=== PATIENT | female | born 1935 | race Caucasian/White ===

== ENCOUNTER → 2016-07-10 | Day surgery (SDC) | payer MEDICARE, BC ==
[~2016-07-10] MED LIST: ACETAMINOPHEN500 M2 PO; AGGRENOX PO; AGGRENOX1 CAP PO; ALPRAZOLAM0.5 MG PO; ALTOPREV40 MG PO; ASPIRIN; ASPIRIN81 M1 PO; ASPIRIN81 M2 PO; AUGMENTIN875 MG PO; BAYER CHEWABLE81 MG PO; CALCIUM 500 +1 EAC2 PO; CELEBREX; CENTRUM SILVER; CLOPIDOGREL75 MG PO; GABAPENTIN300 M2 PO; HYDROCODON-ACE1 EAC5 PO; HYDROCODON-ACE1 EAC7 PO; K-DUR20 ME1 PO; LIPITOR80 MG PO; LISINOPRIL-HCTZ1 T15 PO; LISINOPRIL10 MG PO; METOPROLOL TART25 MG PO; MEVACOR; MEVACOR PO; MEVACOR40 MG PO; NEURONTIN300 MG; NEURONTIN300 MG PO; NITROGLYCERIN0.4 MG SL; NORVASC2.5 MG PO; PATIENT'S PHARMACY; PLAVIX PO; VICODIN 5/500 T1 TAB PO; XANAX0.5 M1 PO; XANAX0.5 MG PO; ZESTORETIC 20-1 EAC2 PO; ZESTORETIC 20-1 EACH PO; ZESTORETIC 20/21 TAB PO
--- NOTE | ~2016-07-10 | OR ---
Unit #: [id number] #: [id number] Patient: SANDHYA CRANE [id number] [address] [place], [place] [address] [id number] MR#: [id number] NAME: SANDHYA CRANE ROOM: Date of Procedure: 07/10/2016 Admission Date: 07/10/2016 Surgeon: Jam Gusman M.D. : 1935 Attending Physician: Jam Gusman M.D. Primary Care Physician: Pooja Hoffman M.D. OPERATIVE REPORT PREOPERATIVE DIAGNOSES 1. Back pain. 2. Lumbar facet disease. POSTOPERATIVE DIAGNOSES 1. Back pain. 2. Lumbar facet disease. PROCEDURE PERFORMED Lumbar facet injection x2 levels with intravenous sedation and fluoroscopic guidance for needle localization. INDICATIONS FOR PROCEDURE The patient is a 81-year-old female, who has had a return of back pain due to significant L4-L5 and L5-S1 facet disease. She was treated last in 4 months ago with facet injections and did extremely well until just recently. Due to nonsurgical pathology, medications alone are sufficient. Plan, based on history, pathology, and symptomatology, is to repeat facet injections today. DESCRIPTION OF PROCEDURE The patient was placed in a seated position. Standard monitors were applied. 2 mg of Versed were given for sedation and anxiolysis, which were adequate. Vital signs remained stable. Sterile prep and drape then of the lumbar area was performed. The skin overlying the left-sided L4-L5 and L5-S1 facet joints localized with 1% lidocaine. At both of these levels, 22-gauge Quincke point spinal needles were advanced with fluoroscopic guidance to bring the needle tip to within the edge of the respective L4-L5 and L5-S1 facets. After confirming this with fluoroscopy, a dose of 1 mL of a mixture of 80 mg of Depo-Medrol and 3 mL of 0.25% bupivacaine were deposited in each joint, 0.5 mL in the joint and 0.5 mL just outside the joint. The needles were flushed and removed. The skin then to the right of midline was localized with 1% lidocaine overlying the right L4-L5 and L5-S1 facet joints. Then using fluoroscopic guidance, 22-gauge Quincke point needles were advanced down toward these joints. The needle was advanced into the edge of the joints using fluoroscopy to confirm proper positioning. After proper confirmation, a dose of 1 mL of a mixture of 80 mg of Depo-Medrol and 3 mL of 0.25% bupivacaine were deposited. The patient tolerated the procedure well. The needles were flushed and removed. Unit #: [id number] #: [id number] Patient: SANDHYA CRANE Dictated by... Polly Arevalo/jovani TD: 07/11/2016 02:23 JOB #: [id number] OPERATIVE REPORT Page 1 of 1 X Jam Gusman MD X PROCEDURE OPERATIVE NOTE
== END | disposition home or self-care (01) ==
LOC: CCSC 09:09
DX: M47.26 Other spondylosis with radiculopathy, lumbar region (principal); M51.86 Other intervertebral disc disorders, lumbar region; I10 Essential (primary) hypertension; E78.00 Pure hypercholesterolemia, unspecified; F41.9 Anxiety disorder, unspecified; Z86.73 Personal history of transient ischemic attack (TIA), and cerebral infarction without residual deficits
CPT/HCPCS: J1040; J2250

== ENCOUNTER 2016-12-03 11:56 | Observation (INO) | payer MEDICARE, BC ==
[~2016-12-03] VITALS: Ht 162.6 cm; Wt 68.5 kg
--- NOTE | ~2016-12-03 | HP ---
Unit #: [id number] #: [id number] Patient: SANDHYA CRANE [id number] [address] [place], [place] [address] [id number] MR#: [id number] NAME: SANDHYA CRANE ROOM: 46275 Age: 81 Sex: F Admission Date: 12/03/2016 : 1935 Attending Physician: Ed Manley M.D. Primary Care Physician: Pooja Hoffman M.D. HISTORY AND PHYSICAL HISTORY OF PRESENT ILLNESS This is a 81-year-old white female seen by Dr. Manley years ago and then Dr. Browning in 2013 for near syncope. The patient does not actively follow with cardiology. She does have a history of hypertension, hyperlipidemia and cerebrovascular accident in 2010. She was told that she had carotid disease but she has not had any recent imaging completed. She continues to actively smoke a half pack of cigarettes per day. Risk factors for ischemic heart disease include hypertension, hyperlipidemia, tobacco abuse and family history of heart disease. She presented to the emergency department with complaints of chest pain. The patient was at home and sitting down when she developed a burning sensation in her midsternal chest. There was no radiation to the neck, jaw, shoulders or arms. There are no associating symptoms of nausea, vomiting or diaphoresis. She denies previous episodes of chest pain with exertion or at night. There are no reports of dizziness, palpitations or syncope. She did have an episode a couple years ago where she fell and EMS was dispatched. She was told that her blood pressure was abnormal. In the emergency department her temperature was 98.5, pulse 89, respirations 18, blood pressure 133/68 and O2 saturation 97% on room air. She was given nitroglycerin per EMS which resolved her pain. She was also given a full dose of aspirin and then started on nitroglycerin paste. Initial cardiac enzymes were negative. EKG revealed sinus rhythm with frequent PVCs and a left axis deviation. Patient was advised for hospitalization and further monitoring. PAST MEDICAL HISTORY 1. Lexiscan Cardiolite stress test February 27, 2012 revealed no ischemia. Ejection fraction 64%. 2. Two-D echocardiogram 01/06/2014 revealed an ejection fraction of 50% to 55% with impaired LV relaxation. Left atrium borderline dilated. Trace mitral regurgitation. Mild tricuspid regurgitation. RVSP 40 to 50 mmHg. No pericardial effusion. 3. Holter monitor January 05, 2014 revealed rare ventricular and supraventricular ectopy. 4. 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 5. Hypertension. 6. Hyperlipidemia. 7. Insomnia. 8. Chronic leg and knee pain from osteoarthritis. 9. Chronic back pain with radiculopathy, spinal stenosis and degenerative disc disease. Unit #: [id number] #: [id number] Patient: SANDHYA CRANE 10. Carotid disease, details unknown. 11. Anxiety. 12. Active tobacco abuse. PAST SURGICAL HISTORY 1. Cataract extraction. 2. Tubal ligation. 3. Right had surgery. 4. Steroid injections due to osteoarthritis of the knees. 5. Multiple lumbar epidural injections. 6. Right knee arthroscopy and partial lateral meniscectomy. HOME MEDICATIONS 1. Zestoretic (lisinopril and hydrochlorothiazide) 20/25 mg one tablet p.o. daily. 2. Lovastatin 40 mg p.o. q.h.s. 3. Norvasc 2.5 mg p.o. daily. 4. Gabapentin 300 mg p.o. b.i.d. with 600 mg q.h.s. 5. Xanax 0.5 mg p.o. daily p.r.n. 6. Hydrocodone and acetaminophen 10/325 mg one tablet p.o. b.i.d. ALLERGIES No known drug allergies. SOCIAL HISTORY The patient lives in a private residence. She is an active smoker and smokes a half pack of cigarettes per day. She has smoked for over 50 years. There are no reports of alcohol or illicit drug use. She is fairly sedentary due to chronic leg pain. FAMILY HISTORY Significant for heart disease; her father had a myocardial infarction at age 71. Her mother at 95. REVIEW OF SYSTEMS Ten-point review of systems negative except for details above in HPI. PHYSICAL EXAMINATION VITAL SIGNS: Temperature 98.5. Pulse 86. Blood pressure 122/74. CONSTITUTIONAL: This is a 81-year-old white female in no acute distress. SKIN: Skin is warm and dry. NECK: Neck is supple. No jugular vein distention. No hepatojugular reflux. Normal carotid upstrokes. Positive carotid bruit on the left. HEART: S1, S2. Regular rate and rhythm. No murmurs, gallops or rubs. LUNGS: Bilateral breath sounds have wheezes throughout. Respirations even and unlabored. No rhonchi or rales. ABDOMEN: Soft, nontender, nondistended. Positive bowel sounds auscultated x4 quadrants. No ascites noted. EXTREMITIES: Bilateral lower extremities have no pretibial pitting edema. DP and PT pulses 2+. Capillary refill less than two seconds. DIAGNOSTIC STUDIES LABORATORY: White blood cell count 6.6, hemoglobin 14.1, hematocrit 40.9, platelets 212, sodium 141, potassium 3.2, chloride 99, CO2 29, BUN 10, creatinine 0.7, glucose 106, AST 18, ALT 11, alkaline phosphatase 39, BNP 131, INR 1, point of care troponin 0.05. IMAGING: Chest x-ray pending. Unit #: [id number] #: [id number] Patient: SANDHYA CRANE CARDIOVASCULAR: EKG reveals sinus rhythm with a first-degree AV block. Frequent PVCs. Left axis deviation. QTc 469 msec. IMPRESSION 1. New onset angina. 2. Left carotid bruit. 3. History of a left internal capsule cerebrovascular accident March 2011. 4. Chronic obstructive pulmonary disease with continued nicotine abuse. 5. Hypertension. 6. Hyperlipidemia. 7. Hypokalemia. PLAN 1. The patient presented to the hospital with complaints of chest pain. She has been admitted for further observation. 2. Serial cardiac enzymes and EKG will be trended. 3. Patient will be started on aspirin and nitrates, full dose Lovenox and high dose statin. 4. She will be given a low dose beta stacie and continued on an NATALIIA inhibitor with parameters. 5. A TSH and fasting lipid profile will be obtained. 6. Patient has been recommended for cardiac catheterization due to symptoms, risk factors and a history of a normal stress test. 7. She has been advised to stop smoking. Dictated by Lakisha Tesfaye APRN for Polly Negrete/jayashree TD: 12/03/2016 15:50 JOB #: [id number] HISTORY AND PHYSICAL Page 1 of 1 X X HISTORY AND PHYSICAL
--- NOTE | ~2016-12-03 | EKG ---
PATIENT: SANDHYA CRANE UNIT #: [id number] Ventricular Rate: 89 BPM Atrial Rate: 89 BPM P-R Interval: 226 ms QRS Duration: 78 ms Q-T Interval: 386 ms QTC Calculation(Bezet): 469 ms P [place]: 96 degrees Calculated R [place]: -58 degrees Calculated T [place]: 72 degrees Diagnosis Line: Sinus rhythm with 1st degree A-V block with Diagnosis Line: frequent and consecutive Premature ventricular Diagnosis Line: complexes Diagnosis Line: Pulmonary disease pattern Diagnosis Line: Left anterior fascicular block Diagnosis Line: Abnormal ECG Diagnosis Line: When compared with ECG of 24-DEC-2014 11:40, Diagnosis Line: Premature ventricular complexes are now Present Diagnosis Line: Nonspecific T wave abnormality no longer evident Diagnosis Line: in Inferior leads Diagnosis Line: Nonspecific T wave abnormality no longer evident Diagnosis Line: in Anterior leads Diagnosis Line: QT has shortened Diagnosis Line: Confirmed by PURNIMA BYERS MD ([id number]) on 12/04/2016 Diagnosis Line: 10:21:11 PM INTERPRETING MD: MODESTA CAMPOS
--- NOTE | ~2016-12-03 | EKG ---
PATIENT: SANDHYA CRANE UNIT #: [id number] Ventricular Rate: 76 BPM Atrial Rate: 76 BPM P-R Interval: 212 ms QRS Duration: 74 ms Q-T Interval: 400 ms QTC Calculation(Bezet): 450 ms P [place]: 60 degrees Calculated R [place]: -25 degrees Calculated T [place]: 60 degrees Diagnosis Line: Sinus rhythm with 1st degree A-V block Diagnosis Line: Otherwise normal ECG Diagnosis Line: When compared with ECG of 04-DEC-2016 10:25, Diagnosis Line: (unconfirmed) Diagnosis Line: Premature ventricular complexes are no longer Diagnosis Line: Present Diagnosis Line: Confirmed by PURNIMA BYERS MD ([id number]) on 12/05/2016 Diagnosis Line: 5:15:08 PM INTERPRETING MD: MODESTA CAMPOS
--- NOTE | ~2016-12-03 | DS ---
Unit #: [id number] #: [id number] Patient: SANDHYA BASS [id number] [facility] [address] [facility]. [place], [place] [address] [id number] I MR#: [id number] NAME: SANDHYA BASS ROOM: 558 Age: 81 Sex: F Admission Date: 12/03/2016 : 1935 Discharge Date: 12/05/2016 Attending Physician: Ed Manley M.D. Primary Care Physician: Pooja Hoffman M.D. DISCHARGE SUMMARY ADMITTING DIAGNOSES 1. New-onset angina. 2. History of left internal capsule cerebrovascular accident in March 2011. 3. Left carotid bruit. 4. Chronic obstructive pulmonary disease. 5. Tobacco abuse. 6. Hypertension. 7. Hyperlipidemia. DISCHARGE DIAGNOSES 1. New-onset angina, resolved. 2. History of left internal capsule cerebrovascular accident in March 2011. 3. Left carotid bruit. 4. Chronic obstructive pulmonary disease. 5. Tobacco abuse. 6. Hypertension. 7. Hyperlipidemia. 8. Coronary artery disease. PROCEDURE PERFORMED On December 04, 2016, patient had a left heart catheterization with Dr. Manley that showed left main, LAD, and left circumflex were all normal. The RCA had a 90% mid stenosis and a 30% distal stenosis. This was treated with a 2.75 x 24 mm Synergy stent. There were no perioperative complications. HOSPITAL COURSE Patient is a 81-year-old female who presented to [facility] on December 03, 2016, with complaints of chest pain. Serial troponins were negative. Cardiac catheterization was advised, and this was performed on December 04, 2016, as discussed above. She underwent stenting of her RCA without complications. She did later while in her room develop bleeding at her left AV IV site. The IV was moved to her left hand and she received some gauze and pressure applied to the site. She was wrapped with Coban and did have some subsequent swelling of her left hand the following morning, but once the Coban was removed, the swelling started to resolve. She was cathed via the right radial approach, and there was no hematoma at the time of discharge. She was also without complaints of chest pain or shortness of breath. Ms. Bass was also evaluated by Dr. Manley. She will be discharged home. Unit #: [id number] #: [id number] Patient: SANDHYA BASS At the time of discharge, vitals are blood pressure 107-140 over 78, heart rate 75, respirations 18, temperature 98, and O2 saturation is 97%. Physical exam is unremarkable other than there is some bruising at the left AC site. Right wrist is without hematoma or pulsatile mass. DIAGNOSTIC STUDIES LABORATORY: White blood cells 7.1, hemoglobin 12.4, hematocrit 36.6, and platelets 202,000. Sodium is 142, potassium 3.5, chloride 106, CO2 of 27, BUN 12, creatinine 0.7, and glucose 96. Cholesterol 115, triglycerides 64, LDL 56, and HDL 46. DISCHARGE MEDICATIONS 1. Gabapentin 300 mg twice daily and 600 mg at bedtime. 2. Lipitor 80 at bedtime. 3. Xanax 0.5 mg p.r.n. anxiety. 4. Norvasc 2.5 mg daily. 5. Lopressor 25 mg twice daily. 6. Lisinopril and hydrochlorothiazide 20/25 mg daily. 7. Aspirin 81 mg daily. 8. Plavix 75 mg daily. 9. Sublingual nitroglycerin 0.4 mg p.r.n. chest pain. DISCHARGE INSTRUCTIONS 1. She has been enrolled in cardiac rehab. 2. She was advised to follow a heart-healthy diet and to stop smoking. 3. She will follow up with Dr. Manley on February 05, 2017, at 2:15 p.m. 1. Dictated by... Angelita Byrne P.A.C. for Polly Negrete TD: 12/07/2016 17:00 JOB #: [id number] DISCHARGE SUMMARY Page 1 of 1 X X DISCHARGE SUMMARY
--- NOTE | ~2016-12-03 | CR72 ---
[facility] A Service of [facility] RADIOLOGY TEXT RESULTS PATIENT: SANDHYA CRANE LOCATION: [place] [address] : [birth year] UNIT #: [id number] AGE: [address]: Ed Manley MD SEX: F ORDER DR: [id number] [facility] [address] [place], [place] [address] [id number] MR#: [id number] Acc #: [id number] NAME: SANDHYA CRANE : 1935 SEX: F STUDY DATE/TIME: 12/03/2016 12:29 UNIT: [facility] ROOM: STUDY DESCRIPTION: CR Chest Single View Portable Attending Physician: Patria Louis M.D. Ordering Physician: Patria Louis M.D. Primary Care Physician: Pooja Hoffman M.D. MEDICAL IMAGING REPORT This report is preliminary unless electronic signature is present EXAM Portable chest. INDICATION Chest discomfort today. COMPARISON 12/24/2014 FINDINGS There is increased atelectasis within the left base. A superimposed pneumonia cannot be excluded. Correlate clinically. Follow up to clearing is recommended. Heart size stable. Atherosclerotic calcification of the aorta. IMPRESSION Increased atelectasis in the left base. Superimposed pneumonia cannot be excluded. Correlate clinically. Follow up to clearing is suggested. Dictated by... Rajesh Olivera M.D. THIS IS AN ELECTRONICALLY VERIFIED REPORT Rajesh Olivera M.D. at 12/03/2016 5:30 PM ANDRES/kings TD: 12/03/2016 14:00 JOB #: [id number] MEDICAL IMAGING REPORT Page 1 of 1 COPY
--- NOTE | ~2016-12-03 | EKG ---
PATIENT: SANDHYA CRANE UNIT #: [id number] Ventricular Rate: 78 BPM Atrial Rate: 78 BPM P-R Interval: 198 ms QRS Duration: 76 ms Q-T Interval: 400 ms QTC Calculation(Bezet): 456 ms P [place]: 68 degrees Calculated R [place]: -53 degrees Calculated T [place]: 53 degrees Diagnosis Line: Sinus rhythm with occasional Premature ventricular Diagnosis Line: complexes Diagnosis Line: Left anterior fascicular block Diagnosis Line: Abnormal ECG Diagnosis Line: When compared with ECG of 04-DEC-2016 06:59, Diagnosis Line: (unconfirmed) Diagnosis Line: Premature ventricular complexes are now Present Diagnosis Line: Confirmed by PURNIMA BYERS MD ([id number]) on 12/05/2016 Diagnosis Line: 5:02:27 PM INTERPRETING MD: MODESTA CAMPOS
--- NOTE | ~2016-12-03 | EKG ---
PATIENT: SANDHYA CRANE UNIT #: [id number] Ventricular Rate: 73 BPM Atrial Rate: 73 BPM P-R Interval: 224 ms QRS Duration: 70 ms Q-T Interval: 396 ms QTC Calculation(Bezet): 436 ms P [place]: 78 degrees Calculated R [place]: -43 degrees Calculated T [place]: 30 degrees Diagnosis Line: Sinus rhythm with 1st degree A-V block Diagnosis Line: Left axis deviation Diagnosis Line: Abnormal ECG Diagnosis Line: When compared with ECG of 03-DEC-2016 17:12, Diagnosis Line: (unconfirmed) Diagnosis Line: Premature ventricular complexes are no longer Diagnosis Line: Present Diagnosis Line: Confirmed by PURNIMA BYERS MD ([id number]) on 12/05/2016 Diagnosis Line: 4:57:34 PM INTERPRETING MD: MODESTA CAMPOS
--- NOTE | ~2016-12-03 | EKG ---
PATIENT: SANDHYA CRANE UNIT #: [id number] Ventricular Rate: 79 BPM Atrial Rate: 79 BPM P-R Interval: 216 ms QRS Duration: 72 ms Q-T Interval: 392 ms QTC Calculation(Bezet): 449 ms P [place]: 100 degrees Calculated R [place]: -38 degrees Calculated T [place]: 36 degrees Diagnosis Line: Sinus rhythm with 1st degree A-V block with Diagnosis Line: occasional Premature ventricular complexes Diagnosis Line: Left axis deviation Diagnosis Line: Abnormal ECG Diagnosis Line: When compared with ECG of 03-DEC-2016 12:19, Diagnosis Line: (unconfirmed) Diagnosis Line: No significant change was found Diagnosis Line: Confirmed by PURNIMA BYERS MD ([id number]) on 12/05/2016 Diagnosis Line: 4:50:28 PM INTERPRETING MD: MODESTA CAMPOS
[~2016-12-03 11:56] MED LIST changes: -ALTOPREV40 MG PO; -BAYER CHEWABLE81 MG PO; -LIPITOR80 MG PO; -METOPROLOL TART25 MG PO; -NITROGLYCERIN0.4 MG SL; -PATIENT'S PHARMACY; -XANAX0.5 M1 PO; -ZESTORETIC 20-1 EAC2 PO
[2016-12-03] MEDS ORDERED: GABAPENTIN300 M2 PO (12:03)
[2016-12-03] MEDS ORDERED: PATIENT'S PHARMACY (12:03)
[2016-12-03] MEDS ORDERED: HYDROCODON-ACE1 EAC5 PO (12:03)
[2016-12-03] MEDS ORDERED: NEURONTIN300 MG PO (12:03)
[2016-12-03] MEDS ORDERED: XANAX0.5 M1 PO (12:03)
[2016-12-03] MEDS ORDERED: ALTOPREV40 MG PO (12:04)
[2016-12-03] MEDS ORDERED: NORVASC2.5 MG PO (12:04)
[2016-12-03] MEDS ORDERED: ZESTORETIC 20-1 EAC2 PO (12:04)
[2016-12-03 12:56] LABS: BASOPHIL% 0.6 % (0-2.5); EOSINOPHIL% 0.7 % (0.0-7.0); HEMATOCRIT 40.9 % (35.0-45.0); HEMOGLOBIN 14.1 gm/dL (12.0-16.0); LYMPHOCYTE# 1.4 X10e3 (1.0-3.5); LYMPHOCYTE% 21.4 % (17.0-45.0); MEAN CELL VOLUME 90.3 FL (83-96); MEAN CORPUSCULAR HGB CONC 34.3 g/dL (30-36); MEAN PLATELET VOLUME 8.5 FL (6.5-11.5); MONOCYTE# 0.4 X10e3 (0-1.0); MONOCYTE% 6.4 % (3.0-12.0); NEUTROPHIL# 4.7 X10e3 (1.5-7.1); NEUTROPHIL% 70.9 % (40-75); PLATELET COUNT 212 X10e3 (140-420); RED BLOOD COUNT 4.53 X10e (3.90-5.30); RED CELL DISTRIBUTION WIDTH 14.5 % (11.0-15.5); WHITE BLOOD COUNT 6.6 X10e3 (4.0-10.5)
[2016-12-03 12:58] LABS: DIFF IND NO
[2016-12-03 13:09] LABS: PARTIAL THROMBOPLASTIN TIME 24.6 SECONDS (23.5-31.3); PROTHROMBIN TIME (PATIENT) 11.3 SECONDS (10.0-11.7)
[2016-12-03 13:17] LABS: POC - CKMB 1.4 ng/mL (0.0-7.9); POC - TROPONIN <0.05 ng/mL (<=0.05)
[2016-12-03 13:25] LABS: ALBUMIN SERUM 4.2 g/dL (3.5-5.0); BILIRUBIN, DIRECT 0.1 mg/dL (0.0-0.2); BILIRUBIN,INDIRECT 0.3 mg/dL (0.0-0.9); BILIRUBIN,TOTAL 0.4 mg/dL (0.2-2.0); BUN/CREATININE RATIO 14.28; CALCIUM SERUM 10.3 mg/dL (8.4-10.2); CREATININE SERUM 0.7 mg/dL (0.6-1.4); GLOM FILT RATE Estimated 82.4 mL/min (>60); POTASSIUM 3.2 mmol/L (3.5-5.1); PROTEIN TOTAL SERUM 7.1 g/dL (6.0-8.3)
[2016-12-03 15:16] LABS: POC - CKMB 1.2 ng/mL (0.0-7.9); POC - TROPONIN <0.05 ng/mL (<=0.05)
[2016-12-03 15:44] LABS: THYROID STIMULATING HORMONE 0.72 uIU/ml (0.34-5.60)
[2016-12-03 15:51] LABS: FREE THYROXIN (T4) 1.09 ng/dL (0.58-1.64)
[2016-12-03 17:24] LABS: CK TOTAL 44 IU/L (26-140)
[2016-12-04 07:17] LABS: HEMATOCRIT 39.8 % (35.0-45.0); HEMOGLOBIN 13.5 gm/dL (12.0-16.0); MEAN CELL VOLUME 90.9 FL (83-96); MEAN CORPUSCULAR HEMOGLOBIN 30.8 PG (28-34); MEAN CORPUSCULAR HGB CONC 33.8 g/dL (30-36); MEAN PLATELET VOLUME 8.8 FL (6.5-11.5); RED BLOOD COUNT 4.38 X10e (3.90-5.30); RED CELL DISTRIBUTION WIDTH 14.5 % (11.0-15.5)
[2016-12-04 07:19] LABS: WHITE BLOOD COUNT 12.9 X10e3 (4.0-10.5)
[2016-12-04 07:26] LABS: INR 1.1; PARTIAL THROMBOPLASTIN TIME 27.8 SECONDS (23.5-31.3); PROTHROMBIN TIME (PATIENT) 11.6 SECONDS (10.0-11.7)
[2016-12-04 07:47] LABS: CK TOTAL 44 IU/L (26-140)
[2016-12-04 07:49] LABS: BUN/CREATININE RATIO 13.75; CALCIUM SERUM 9.6 mg/dL (8.4-10.2); CREATININE SERUM 0.8 mg/dL (0.6-1.4); GLOM FILT RATE Estimated 70.2 mL/min (>60); MAGNESIUM 1.7 mg/dL (1.6-3.0); POTASSIUM 3.7 mmol/L (3.5-5.1)
[2016-12-04 08:21] LABS: CHOLESTEROL 129 mg/dL (0-200); HDL CHOLESTEROL 54 mg/dL (35-95); LDL CHOLESTEROL 63 mg/dL (-130); LDL/HDL RATIO 1 RATIO (0-4); TRIGLYCERIDES 59 mg/dL (10-160)
[2016-12-04 17:09] LABS: HEMATOCRIT 39.3 % (35.0-45.0); HEMOGLOBIN 13.3 gm/dL (12.0-16.0); MEAN CORPUSCULAR HEMOGLOBIN 30.8 PG (28-34); MEAN CORPUSCULAR HGB CONC 33.8 g/dL (30-36); MEAN PLATELET VOLUME 8.6 FL (6.5-11.5); RED BLOOD COUNT 4.32 X10e (3.90-5.30); RED CELL DISTRIBUTION WIDTH 14.5 % (11.0-15.5); WHITE BLOOD COUNT 11.1 X10e3 (4.0-10.5)
[2016-12-04 17:45] LABS: ANGIO MB 1.3 ng/ml
[2016-12-05 01:16] LABS: HEMATOCRIT 36.6 % (35.0-45.0); HEMOGLOBIN 12.4 gm/dL (12.0-16.0); MEAN CELL VOLUME 90.4 FL (83-96); MEAN CORPUSCULAR HEMOGLOBIN 30.5 PG (28-34); MEAN CORPUSCULAR HGB CONC 33.8 g/dL (30-36); MEAN PLATELET VOLUME 8.5 FL (6.5-11.5); RED BLOOD COUNT 4.05 X10e (3.90-5.30); RED CELL DISTRIBUTION WIDTH 14.2 % (11.0-15.5); WHITE BLOOD COUNT 7.1 X10e3 (4.0-10.5)
[2016-12-05 01:57] LABS: ANGIO %MB 3.1 % (0.0-4.0); ANGIO MB 1.6 ng/ml
[2016-12-05 02:49] LABS: BUN/CREATININE RATIO 17.14; CREATININE SERUM 0.7 mg/dL (0.6-1.4); GLOM FILT RATE Estimated 82.4 mL/min (>60); POTASSIUM 3.5 mmol/L (3.5-5.1)
[2016-12-05] MEDS ORDERED: LIPITOR80 MG PO (11:55)
[2016-12-05] MEDS ORDERED: METOPROLOL TART25 MG PO (11:55)
[2016-12-05] MEDS ORDERED: BAYER CHEWABLE81 MG PO (11:58)
[2016-12-05] MEDS ORDERED: CLOPIDOGREL75 MG PO (11:58)
[2016-12-05] MEDS ORDERED: NITROGLYCERIN0.4 MG SL (12:00)
== END 2016-12-05 12:40 | disposition home or self-care (01) ==
LOC: CED 11:56 → C5B 14:20 → CEDOF 14:20 → CED 14:41 → CEDOF 14:41 → C5B 17:31 → CEDOF 17:31 → C5B 17:31
PROVIDERS: Emergency Medicine; Internal Medicine Cardiovascular Disease; Nurse Practitioner Family
DX: I25.119 Atherosclerotic heart disease of native coronary artery with unspecified angina pectoris (principal); R01.1 Cardiac murmur, unspecified; J44.9 Chronic obstructive pulmonary disease, unspecified; I10 Essential (primary) hypertension; E78.5 Hyperlipidemia, unspecified; G47.00 Insomnia, unspecified; M17.10 Unilateral primary osteoarthritis, unspecified knee; F17.210 Nicotine dependence, cigarettes, uncomplicated; Z86.73 Personal history of transient ischemic attack (TIA), and cerebral infarction without residual deficits; Z79.02 Long term (current) use of antithrombotics/antiplatelets; Z79.82 Long term (current) use of aspirin; Z79.899 Other long term (current) drug therapy; Z98.51 Tubal ligation status
CPT/HCPCS: 36415; 71010; 80048; 80061; 80076; 82550; 82553; 83690; 83735; 83880; 84439; 84443; 84484; 85025; 85027; 85347; 85610; 85730; 93005; 94760; 96372; 99152; 99153; 99285; C1725; C1769; C1874; C1887; C1894; G0378; J1644; J1650; J2250; J3010